=== PATIENT | male | born 1945 | race Caucasian/White ===

== ENCOUNTER 2020-08-02 02:50 | Inpatient (IN) | payer MEDICARE ==
[~2020-08-02 02:50] MED LIST: ASPIRIN CHEWABL81 MG PO; BUMEX1 MG PO; CLOPIDOGREL75 MG PO; CYMBALTA20 M1 PO; ELIQUIS2.5 MG PO; FOLIC ACID1 MG PO; LANTUS **100 UNITS/ SC; LIPITOR40 MG PO; PEPCID AC20 MG PO; PERCOCET 7.5/321 TAB PO; POTASSIUM CHLO10 MEQ PO; TIZANIDINE HCL4 MG PO; TRESIBA100 UNIT/1 SC; XARELTO10 MG PO
[2020-08-02 03:36] LABS: EOSINOPHIL 4.2 % (0-7); HCT 35.1 % (42.0-52.0); HGB 11.4 g/dl (13.2-18.0); LYMPHOCYTE 16.3 % (15-48); MCH 26.9 pg (25.0-31.0); MCHC 32.5 g/dL (32.0-36.0); MCV 82.8 fL (78.0-100.0); MONOCYTE 11.8 % (0-12); MPV 10.6 fL (6.0-9.5); NEUTROPHIL 66.4 % (41-80); NRBC 0; RBC 4.24 M/uL (4.70-6.00); RDW 14.8 % (11.5-14.0); WBC 3.8 K/uL (4.0-10.5)
[2020-08-02 03:43] LABS: BILIRUBIN NEGATIVE (NEGATIVE); BLOOD 2+ Ery/uL (NEGATIVE); CLARITY CLEAR (CLEAR); COLOR YELLOW (YELLOW); GLUCOSE (U) NORMAL (NORMAL); LEUKOCYTES NEGATIVE Leu/uL (NEGATIVE); NITRITE NEGATIVE (NEGATIVE); PROTEIN TRACE (LOW) mg/dL (NEGATIVE); SPECIFIC GRAVITY 1.015 (1.001-1.030); UROBILINOGEN 0.2 mg/dL (0.2-1.0); pH 7.5 (5.0-9.0)
[2020-08-02 03:46] LABS: INR 1.26 (0.9-1.2); PTT 37.8 SECONDS (22.2-34.7)
[2020-08-02 03:49] LABS: AMPHETAMINES NEGATIVE (NEGATIVE); BARBITURATES NEGATIVE (NEGATIVE); ECSTASY (MDMA) NEGATIVE (NEGATIVE); MARIJUANA (THC) NEGATIVE (NEGATIVE); METHADONE NEGATIVE (NEGATIVE); OPIATES NEGATIVE (NEGATIVE); OXYCODONE NEGATIVE (NEGATIVE)
[2020-08-02 03:53] LABS: PLT 63 K/uL (150-400)
[2020-08-02 03:55] LABS: LACTIC ACID 1.7 mmol/L (0.4-1.9)
[2020-08-02 03:57] LABS: BACTERIA TRACE; SQUAMOUS EPITHELIAL CELLS RARE; URINARY WBC RARE
[2020-08-02 03:59] LABS: ALBUMIN 2.8 g/dL (3.4-5.0); BILIRUBIN - TOTAL 1.1 mg/dL (0.2-1.0); BUN/CREAT RATIO (CALC) 32.2 RATIO; CREATININE 1.43 mg/dL (0.67-1.17); GLOBULIN (CALCULATION) 3.3 g/dL; TOTAL PROTEIN 6.1 g/dL (6.4-8.2)
[2020-08-02 04:01] LABS: CKMB 1.4 ng/mL (0.0-3.6)
[2020-08-02 11:45] LABS: IRON % SATURATION 29.4 %SAT (20-50)
[2020-08-02] MEDS ORDERED: CRESTOR40 MG PO (12:21)
[2020-08-02] MEDS ORDERED: FERROUS SULFAT325 M2 PO (12:22)
[2020-08-02] MEDS ORDERED: BUMEX1 MG PO (12:22)
[2020-08-02] MEDS ORDERED: METOLAZONE 5MG T5 M1 PO (12:23)
[2020-08-02] MEDS ORDERED: CALCIUM PO (12:25)
[2020-08-02 12:57] LABS: FOLIC ACID (SERUM) 54.5 ng/mL (8.6-58.9); FT4 (FREE T4) 1.1 ng/dL (0.76-1.46)
[2020-08-02 13:45] LABS: INR 1.27 (0.9-1.2); PROTHROMBIN TIME 15.1 SECONDS (11.4-13.6)
[2020-08-02 14:00] LABS: ALBUMIN 2.8 g/dL (3.4-5.0); BILIRUBIN - TOTAL 1.5 mg/dL (0.2-1.0); BUN/CREAT RATIO (CALC) 32.3 RATIO; CREATININE 1.3 mg/dL (0.67-1.17); GLOBULIN (CALCULATION) 3.1 g/dL; TOTAL PROTEIN 5.9 g/dL (6.4-8.2)
[2020-08-03 06:09] LABS: BASOPHIL 0.8 % (0-2); EOSINOPHIL 3.1 % (0-7); HCT 35.1 % (42.0-52.0); HGB 11.2 g/dl (13.2-18.0); LYMPHOCYTE 19.4 % (15-48); MCH 26.7 pg (25.0-31.0); MCHC 31.9 g/dL (32.0-36.0); MCV 83.6 fL (78.0-100.0); MONOCYTE 10.4 % (0-12); MPV 10.2 fL (6.0-9.5); NRBC 0; WBC 6.1 K/uL (4.0-10.5)
[2020-08-03 06:26] LABS: PLT 69 K/uL (150-400)
[2020-08-03 06:28] LABS: ALBUMIN 2.6 g/dL (3.4-5.0); BILIRUBIN - TOTAL 1.8 mg/dL (0.2-1.0); BUN/CREAT RATIO (CALC) 28.4 RATIO; CREATININE 1.34 mg/dL (0.67-1.17); GLOBULIN (CALCULATION) 3.1 g/dL; POTASSIUM 3.2 mmol/L (3.5-5.1); TOTAL PROTEIN 5.7 g/dL (6.4-8.2)
[2020-08-04] MEDS ORDERED: LACTULOSE20 GM/30 M PO (07:46)
[2020-08-04 07:56] LABS: BASOPHIL 0.7 % (0-2); EOSINOPHIL 4.5 % (0-7); HCT 34.6 % (42.0-52.0); LYMPHOCYTE 18.9 % (15-48); MCH 26.8 pg (25.0-31.0); MCHC 31.8 g/dL (32.0-36.0); MCV 84.4 fL (78.0-100.0); MONOCYTE 11.1 % (0-12); MPV 10.7 fL (6.0-9.5); NEUTROPHIL 64.4 % (41-80); NRBC 0; RDW 14.9 % (11.5-14.0); WBC 4.5 K/uL (4.0-10.5)
[2020-08-04 08:13] LABS: ALBUMIN 2.6 g/dL (3.4-5.0); BILIRUBIN - TOTAL 1.6 mg/dL (0.2-1.0); BUN/CREAT RATIO (CALC) 36.7 RATIO; CREATININE 1.09 mg/dL (0.67-1.17); GLOBULIN (CALCULATION) 2.7 g/dL; POTASSIUM 3.2 mmol/L (3.5-5.1); TOTAL PROTEIN 5.3 g/dL (6.4-8.2)
[2020-08-04 08:29] LABS: PLT 58 K/uL (150-400)
[2020-08-04] MEDS ORDERED: TRAMADOL HCL50 MG PO (10:00)
== END 2020-08-04 11:47 | disposition home or self-care (01) | DRG 442 ==
LOC: FER 02:50 → FMS 10:14
PROVIDERS: Emergency Medicine; Nurse Practitioner; ADMIT Allergy & Immunology Allergy
DX: K72.90 Hepatic failure, unspecified without coma (principal); D61.818 Other pancytopenia; K75.81 Nonalcoholic steatohepatitis (NASH); K74.60 Unspecified cirrhosis of liver; I25.10 Atherosclerotic heart disease of native coronary artery without angina pectoris; Z20.822 Contact with and (suspected) exposure to COVID-19; I50.9 Heart failure, unspecified; E11.9 Type 2 diabetes mellitus without complications; I11.0 Hypertensive heart disease with heart failure; E78.5 Hyperlipidemia, unspecified; G47.30 Sleep apnea, unspecified; M19.90 Unspecified osteoarthritis, unspecified site; I25.2 Old myocardial infarction; Z95.5 Presence of coronary angioplasty implant and graft; Z90.49 Acquired absence of other specified parts of digestive tract; Z98.890 Other specified postprocedural states; Z79.82 Long term (current) use of aspirin
CPT/HCPCS: 36415; 36600; 70450; 70551; 71045; 76705; 80053; 80305; 81001; 82140; 82553; 82607; 82746; 82803; 83540; 83550; 83605; 84425; 84439; 84443; 84484; 85025; 85610; 85730; 87040; 93005; 96372; G0480; J2060; J3411; J3475; J3480; J7120; U0002